=== PATIENT | male | born 1975 | race Caucasian/White ===

== ENCOUNTER 2018-03-15 20:36 | Emergency (ER) | payer OTHER ==
[~2018-03-15] VITALS: Ht 180.3 cm; Wt 80.0 kg
[2018-03-15 20:43] VITALS: BP 127/77; PULSE 79; RESP 16; TEMP 98; O2SAT 99
[2018-03-15] MEDS ORDERED: KETOROLAC TROMETHAMINE 60 MG/2 ML (IM) VIAL IM ONE (21:15)
--- NOTE | 2018-03-15 21:18 | PD ---
HPI Chief Complaint: Musculoskeletal Complaint Time Seen by Provider: 20:54 Travel History International Travel<30 days: No Contact w/Intl Traveler<30days: No Traveled to known affect area: No History of Present Illness HPI 42yo M with no PMH presents to the ED with c/o left arm pain s/p twisting it at 10am today. Said he was reaching up with his left arm and at the same time picking up something in right arm and twisted his body and then heard a pop sound in his left arm. Pain is worst with movement. Denies any direct fall or trauma. Denies any focal weakness. Denies any fever, chest pain, sob, n/v, abdominal pain. Did not take anything for pain at home. PFSH Past Medical History Diminished Hearing: No Social History Alcohol Use: No Tobacco Use: Yes (OCC) Substance Use: No Allergies-Medications (Allergen,Severity, Reaction): Coded Allergies: No Known Allergies (Unverified , 03/15/18) Review of Systems Except as stated in HPI: all other systems reviewed are Neg Physical Exam Narrative GENERAL: 42yo M in mild distress. SKIN: Focused skin assessment warm/dry. HEAD: Atraumatic. Normocephalic. CARDIOVASCULAR: Regular rate and rhythm. No murmur appreciated. RESPIRATORY: No accessory muscle use. Clear to auscultation. Breath sounds equal bilaterally. GASTROINTESTINAL: Abdomen soft, non-tender, nondistended. MUSCULOSKELETAL: LUE: +Yergason's test. +TTP medial distal humerus. FROM left shoulder and elbow. No erythema, edema. Sensation equal bilaterally. Distal pulses intact. NEUROLOGICAL: Awake and alert. No obvious cranial nerve deficits. Motor grossly within normal limits. Normal speech. PSYCHIATRIC: Appropriate mood and affect; insight and judgment normal. Data Data Last Documented VS Vital Signs Date Time Temp Pulse Resp B/P (MAP) Pulse Ox O2 Delivery O2 Flow Rate FiO2 03/15/18 20:47 16 03/15/18 20:43 98.0 79 127/77 (94) 99 Orders Orders Ketorolac Inj (Toradol Inj) (03/15/18 21:15) Splint Or Brace Apply/Monitor (03/15/18 21:56) Sling Cradle Arm (03/15/18 ) MDM Medical Decision Making Medical Screen Exam Complete: Yes Emergency Medical Condition: Yes Differential Diagnosis Biceps tendon injury vs. musculoskeletal pain Narrative Course 42yo M with left arm pain after twisting in in full extension at work this morning. Pt's exam is consistent with a biceps tendon injury. Pt given toradol with improvement of pain. Pt's left arm place in arm sling for comfort. Will have pt follow up with orthopedic clinic as outpatient. Diagnosis Primary Impression: Left arm pain Referrals: Roderick Boone MD call for appointment Patient Instructions: General Instructions Departure Forms: Tests/Procedures Additional Instructions: Please follow up with orthopedic as outpatient. Return to the ED if symptoms worsen. Med/Other Pt SpecificInfo: Prescription(s) given Scripts Ibuprofen (Ibuprofen) 600 Mg Tab 600 MG PO Q8HR Y for PAIN, #20 TAB 0 Refills Prov: Agnes Vance DO 03/15/18 Disposition: 01 DISCHARGE HOME Condition: Stable Agnes Vance DO March 15, 2018 21:18
[2018-03-15] MEDS ORDERED: IBUP-232 PO (22:29)
== END 2018-03-15 22:36 | disposition home or self-care (01) ==
LOC: NEPD 20:36
DX: M79.602 Pain in left arm (principal); Z72.0 Tobacco use
CPT/HCPCS: 96372; 99283; J1885